=== PATIENT | male | born 1985 | race Caucasian/White ===

== ENCOUNTER 2022-06-02 18:27 | Emergency (ER) | payer OTHER ==
[~2022-06-02] VITALS: Ht 162.6 cm; Wt 75.0 kg
[2022-06-02 18:38] VITALS: BP 148/82
[2022-06-02 18:57] LABS: BASOPHILS # (AUTO) 0.1 X10'3 (0-0.2); BASOPHILS % (AUTO) 0.5 % (0-1); EOSINOPHILS % (AUTO) 0.2 % (0-6); LYMPHOCYTES # (AUTO) 2.2 X10'3 (1.1-4.8); LYMPHOCYTES % (AUTO) 12.8 % (21-51); MEAN CORPUSCULAR HEMOGLOBIN 30.5 PG (27.0-31.0); MEAN CORPUSCULAR HGB CONC 34.1 g/dL (33.0-36.5); MEAN CORPUSCULAR VOLUME 89.7 FL (78-98); MONOCYTES % (AUTO) 5.5 % (2-12); NEUTROPHILS # (AUTO) 14.2 X10'3 (1.8-7.7); PLATELET COUNT 238 X10'3 (140-440); RED BLOOD COUNT 4.91 X10'6 (4.70-6.10); RED CELL DISTRIBUTION WIDTH 13.5 % (11.5-14.5); WHITE BLOOD COUNT 17.5 X10'3 (4.5-11.0)
[2022-06-02 19:06] LABS: CLARITY,URINE CLEAR (Clear); COLOR,URINE STRAW (Yellow); GLUCOSE, URINE NEGATIVE (Neg); KETONES,URINE NEGATIVE (Neg); LEUKOCYTE ESTERASE ,URINE NEGATIVE (Neg); NITRITES, URINE NEGATIVE (Neg); OCCULT BLOOD,URINE TRACE-INTACT (Neg); PROTEIN,URINE NEGATIVE (Neg); UROBILINOGEN,URINE 0.2 E.U/dL (0.2-1.0)
[2022-06-02 19:07] LABS: UA COLLECTION TYPE CLN CATCH MIDSTREAM
[2022-06-02 19:11] LABS: ALANINE AMINOTRANSFERASE 35 U/L (12-78); ALBUMIN 4.8 G/DL (3.4-5.0); ALBUMIN/GLOBULIN RATIO 1.3 (1.1-1.5); ALKALINE PHOSPHATASE 99 IU/L (46-116); ANION GAP 9 (8-16); ASPARTATE AMINO TRANSFERASE 25 U/L (10-37); BILIRUBIN,TOTAL 0.7 MG/DL (0.1-1.0); BLOOD UREA NITROGEN 9 MG/DL (7-18); BUN/CREATININE RATIO 12.7 (5.4-32.0); CALCIUM 9.6 MG/DL (8.5-10.1); CHLORIDE 103 MMOL/L (99-107); CREATININE 0.71 MG/DL (0.60-1.10); GLUCOSE 106 MG/DL (70-104); LIPASE 134 U/L (73-393); POTASSIUM 3.6 MMOL/L (3.5-5.1); SODIUM 137 MMOL/L (135-145); TOTAL CARBON DIOXIDE 25.3 MMOL/L (24-32); TOTAL PROTEIN 8.5 G/DL (6.4-8.2); eGFR > 90 ML/MIN
[2022-06-02 19:11] LABS: BACTERIA,URINE NONE SEEN /HPF (Neg); SQUAMOUS EPITHELIAL CELL,UR FEW /LPF (FEW)
[2022-06-02 19:12] LABS: RBC,URINE 0-2 /HPF (0-2); WBC,URINE 0-4 /HPF (0-4)
[2022-06-02] MEDS ORDERED: ondansetron/PF 4mg/2ml inj IV ONE (22:00)
[2022-06-02] MEDS ORDERED: normal saline 1000ml 1,000 ML IV ONE (22:00)
[2022-06-02] MEDS ORDERED: morphine 4 MG/ML inj SYRINge IV ONE (22:00)
== END 2022-06-02 22:53 | disposition left against medical advice (07) ==
LOC: ER 18:28
DX: R10.9 Unspecified abdominal pain (principal); R11.2 Nausea with vomiting, unspecified; M54.59 Other low back pain
CPT/HCPCS: 36415; 74176; 80053; 81001; 83690; 85025; 99284; J7030

== ENCOUNTER 2022-06-03 01:27 | Emergency (ER) | payer OTHER | END 2022-06-03 02:42 | disposition left against medical advice (07) | LOC: ER 01:28 | DX: R10.9 Unspecified abdominal pain (principal); Z53.21 Procedure and treatment not carried out due to patient leaving prior to being seen by health care provider ==